=== PATIENT | male | born 1970 | race Caucasian/White ===

== ENCOUNTER 2025-04-02 12:55 | Outpatient (AMB) | payer OTHER, SELFPAY ==
--- NOTE | 2025-04-02 12:57 | A.OFFPC_ITS ---
Vital Signs 04/02/25 13:04 Height 5 ft 8.5 in Weight 203 lb BMI 30.4 BP 137/69 Respiration 14 Pulse 66 Pulse Source Pulse Oximeter Temp 97.6 F Temp Source Temporal Artery Scan Pulse Oximetry (%) 98 Oxygen Delivery Method Room Air Intake Visit Reasons: [employer] Required: No Accompanied by: Self / Same As Patient Allergies No Known Allergies Allergy (Verified 04/02/25 12:57) Tobacco use date assessed: 04/02/25 Dental Screening Dental Screen Date: 04/02/25 Did you have a dental visit in the last 12 months?: Yes Did you have a dental problem in the last 6 months where you did not have access to dental care?: No Was dental information given to patient?: Patient has dentist [facility] Medical History Elevated cholesterol Elevated cholesterol Surgical History History of excision of pilonidal cyst History of excision of pilonidal cyst Family History (Updated 04/02/25 @ 13:08 by GAGANDEEP Valverde) Father Heart problem High cholesterol Mother Pacemaker Social History (Updated 04/02/25 @ 13:08 by GAGANDEEP Valverde) Housing: House Alcohol intake: current Alcohol intake frequency: holidays/special occasions only Patient Tobacco Use Status: Never used Tobacco service: No Current occupational status: employed Cognitive needs: No Hearing needs: No Vision needs: Yes (rx glasses) Questionnaire PHQ-9 Over the last 2 weeks, how often have you been bothered by any of the following problems? 1. Little interest or pleasure in doing things: not at all 2. Feeling down, depressed, or hopeless: not at all 3. Trouble falling or staying asleep, or sleeping too much: not at all 4. Feeling tired or having little energy: not at all 5. Poor appetite or overeating: not at all 6. Feeling bad about yourself - or that you are a failure or have let yourself or your family down: not at all 7. Trouble concentrating on things, such as reading the newspaper or watching television: not at all 8. Moving or speaking so slowly that other people could have noticed. Or the opposite - being so fidgety or restless that you have been moving around a lot more than usual: not at all 9. Thoughts that you would be better off or of hurting yourself in some way: not at all Total score: 0 Source: Developed by Drs. Jeffrey Yu, Lauren Almendarez, Jose Raul Doty and colleagues, with an educational trista from [employer]. Thrive Questionnaire Date Thrive assessed: 04/02/25 I am a: Patient What is your living situation today?: I have a steady place to live Within the past 12 months, did the food you bought not last and you didn't have the money to get more?: Never true Within the past 12 months, did you worry whether your food would run out before you got money to buy more?: Never true Do you have trouble paying for medicines?: No Do you have trouble getting transportation to medical appointments?: No Do you have trouble paying your heating and electricity bill?: No Do you have trouble taking care of your child, family member or friend?: No Do you have trouble with day-to-day activities such as bathing, preparing meals, shopping, managing finances, etc.?: No Are you currently unemployed and looking for a job?: No Are you interested in more education?: No Please select the resources that you would like help with: None THRIVE Score: 0 AUDIT C Alcohol Use Questionnaire (AUDIT-C) 1. How often do you have a drink containing alcohol?: Monthly or less 2. How many drinks containing alcohol do you have on a typical day when you are drinking?: 1 or 2 3. How often do you have six or more drinks on one occasion?: Never Total Score: 1 TAD-7 AMB Questionnaire TAD-7 Date TAD - 7 assessed: 04/02/25 Feeling nervous, anxious, or on edge: 0 = Not at all Not being able to stop or control worryin = Not at all Worrying too much about different things: 0 = Not at all Trouble relaxin = Not at all Being so restless that it is hard to sit still: 0 = Not at all Becoming easily annoyed or irritable: 0 = Not at all Feeling afraid as if something awful might happen: 0 = Not at all Total TAD-7 score (0-4 normal; 5-9 mild; 10-14 moderate; 15-21 severe): 0 Source: Developed by Drs. Jeffrey Yu, Lauren Almendarez, Jose Raul Doty and colleagues, with an educational trista from [employer]. Physical exam (Primary Care) Vital Signs: Last Vital Signs Temp 97.6 F 04/02/25 13:04 Pulse 66 04/02/25 13:04 Resp 14 04/02/25 13:04 BP 137/69 04/02/25 13:04 Pulse Ox 98 04/02/25 13:04 Oxygen Delivery Method Room Air 04/02/25 13:04 BMI result Body Mass Index 30.4 Tobacco/Smoking Status: Tobacco use Status Tobacco use date assessed 04/02/25 04/02/25 12:59 Patient Tobacco Use Status Never used Tobacco 04/02/25 13:08 PHQ-9: PHQ-9 Score PHQ-9: Total score 0 04/02/25 12:59 Thrive Assessment: Date of Thrive Assessment Date Thrive assessed 04/02/25 04/02/25 12:59 Coding Level of Care Code Est Pt Prev Care 40-64y(14276) Diagnoses Elevated cholesterol E78.00 Annual physical exam Z00.00 Assessment & Plan Assessment & Plan (1) Elevated cholesterol: Code(s): E78.00 - Pure hypercholesterolemia, unspecified Category: Medical Plan: BW revd. Continue statins at same dosage. (2) Annual physical exam: Code(s): Z00.00 - Encounter for general adult medical examination without abnormal findings Plan: History of Present Illness - The patient is a 54-year-old male presenting with an annual physical examination. - Previous test results showed a PSA level under 4, with no abnormal findings in the MRI performed for further evaluation. - The patient is on statins for hypercholesterolemia with normal current levels, although concerns exist about memory implications and potential elevated blood sugar from continued use. - He has a history of a pilonidal cyst excision performed in his twenties with no subsequent complications. - There is no significant surgical history other than the previously mentioned procedure. - Social updates reveal the patient's daughter is transitioning to college life, influencing family dynamics. 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 - Family status: , with one daughter. - Recent life changes: Daughter graduated high school and preparing for college at [employer] in the veterinary field. - Vision: Reports good vision with ability to drive at night. Review of Systems - Genitourinary: Reports previous elevated PSA, currently under 4 per recent urologist evaluation. - Cardiovascular: Denies current issues; managed with statins. - Neurological: Questions regarding potential long-term effects of statins on memory; no current concerns. - Gastrointestinal: Reports no new issues following prior colonoscopy; history of pilonidal cyst removal. Physical Exam General: Cooperative and healthy appearing Nutritional Appearance: Well nourished Orientation/consciousness: Patient oriented x3 Limitations: No limitations Head: Normal to inspection General: Appearance normal, both eyes and all related structures Neck: Normal visual inspection Chest: Normal palpation of entire chest wall Respiratory: N ormal respiratory effort Neurology: Patient oriented x3, Vision is good, Able to drive at night Results - Labs: Cholesterol levels within normal range; PSA under 4 as per last evaluation. - Imaging: MRI performed on prostate, indicating no significant findings. Plan 1. Benign Prostatic Hyperplasia - Continue follow-up with urologist annually due to stable PSA and MRI results. 2. Hypercholesterolemia - Maintain current statin regimen; benefits of cardiovascular protection emphasized despite potential cognitive risk concerns. 3. History Of Pilonidal Cyst Removal - Documented as part of the patient's surgical history. Discussion Notes During the consultation, I discussed the patient's elevated PSA history and recent benign MRI results, emphasizing an annual check-in with the urologist to monitor any potential changes. The management of hypercholesterolemia with statins was reviewed, explaining that while there might be potential memory concerns and elevated blood sugars, the heart disease protection afforded by [facility] significantly outweighs these risks. We also spoke about the patient's concerns regarding long-term use of statins, and I confirmed the benefits of current treatment levels. I encouraged him to continue the same regimen unless otherwise advised in follow-up evaluations. Discussions also touched upon his family's transition, notably his daughter's journey to college, reflecting life changes potentially affecting social dynamics. Patient Instructions - Continue current statin medication as prescribed. - Schedule an annual follow-up with your urologist. - Monitor for any new symptoms or concerns and report them as needed. - Maintain any health appointments and ensure any prescriptions are refilled timely, utilizing auto-refill if available. - Contact us for any questions or clarifications on your health plan.
[2025-04-02 13:04] VITALS: BP 137/69; PULSE 66; RESP 14; TEMP 36.4; O2SAT 98; BMI 30.4
== END 2025-04-02 13:22 | disposition home or self-care (01) ==
LOC: HO.HMCSH 12:55
PROVIDERS: PCP Internal Medicine; Visit Provider Internal Medicine
DX: E78.00 Pure hypercholesterolemia, unspecified (principal); Z00.00 Encounter for general adult medical examination without abnormal findings

== ENCOUNTER → 2025-04-02 12:55 | Outpatient (BNVA) | payer OTHER, SELFPAY | PROVIDERS: PCP Internal Medicine; Visit Provider Internal Medicine ==